=== PATIENT | female | born 1990 | race Caucasian/White ===

== ENCOUNTER 2016-08-13 10:05 | Emergency (ER) | payer OTHER ==
[2016-08-13 12:22] LABS: HEMOGLOBIN 11.4 gm/dl (12.3-15.3); RED BLOOD COUNT 4.39 M/UL (4.00-5.10)
[2016-08-13 12:45] LABS: BUN/CREATININE RATIO 22 (0-10)
== END 2016-08-13 14:20 | disposition home or self-care (01) ==
LOC: ER1 10:05
PROVIDERS: Emergency Medicine
DX: R07.9 Chest pain, unspecified (principal); F32.9 Major depressive disorder, single episode, unspecified; F17.200 Nicotine dependence, unspecified, uncomplicated; Z79.899 Other long term (current) drug therapy
CPT/HCPCS: 71020; 80048; 84484; 85025; 85379; 93005; 99285